=== PATIENT | female | born 1970 | race Caucasian/White ===

== ENCOUNTER 2021-03-05 02:19 | Emergency (ER) | payer OTHER ==
[~2021-03-05] VITALS: Ht 149.9 cm; Wt 59.0 kg
[~2021-03-05 02:19] MED LIST: DULO60CA41 PO
[2021-03-05 02:28] VITALS: BP_SYST 134
--- NOTE | 2021-03-05 02:28 | NUR ---
Patient to ER bed 5 to gown for evaluation. Side rails up.
--- NOTE | 2021-03-05 02:40 | NUR ---
ER Dr. CARO at bedside examining patient.
[2021-03-05] MEDS ORDERED: IBUPROFEN 800 MG TABLET PO ONE (02:45)
[2021-03-05] MEDS ORDERED: IPRATROPIUM/ALBUTEROL SULFATE 3 ML AMPUL.NEB (DUONEB) INH ONE (02:45)
[2021-03-05] MEDS ORDERED: AMLO5TAB4 PO (02:45)
[2021-03-05] MEDS ORDERED: lipitor PO (02:47)
--- NOTE | 2021-03-05 03:25 | NUR ---
PT JUST NOTIFIED ME THAT SHE FORGOT TO TELL THE DOCTOR SHE IS ALSO HAVING RIGHT NECK AND SHOULDER PAIN AND LEFT FLANK PAIN. MD Hinojosa NOTIFIED, NO NEW ORDERS RECEIVED.
[2021-03-05 03:57] LABS: HEMOGLOBIN 12.6 g/dL (12.0-16.0); RED BLOOD CELL COUNT(AUTO) 4.15 MIL/uL (4.2-6.2); WHITE BLOOD COUNT (AUTO) 7.7 K/uL (4.8-10.8)
[2021-03-05 03:58] LABS: HEMATOCRIT 36.9 % (36-48); LYMPHOCYTES % (AUTO) 12.1 % (20.5-51.5); MEAN CORPUSCULAR HEMOGLOBIN 30 pg (27-31); MEAN CORPUSCULAR HGB CONC 34 % (32-36); MEAN CORPUSCULAR VOLUME 89 fL (79.0-98.0); NEUTROPHILS % (AUTO) 72.1 % (40.0-70.0); PLATELET COUNT (AUTO) 280 K/uL (130-430); RED CELL DISTRIBUTION WIDTH 12.3 % (9.0-15.0)
[2021-03-05 03:59] LABS: BASOPHILS # (AUTO) 0.1 K/uL (0.0-0.2); BASOPHILS % (AUTO) 1.6 % (0.0-2.0); EOSINOPHILS # (AUTO) 0.3 K/uL (0.0-0.4); LYMPHOCYTES # (AUTO) 0.9 K/uL (1.0-5.5); MONOCYTES # (AUTO) 0.8 K/uL (0.0-1.0); MONOCYTES % (AUTO) 10.2 % (1.7-9.3); NEUTROPHILS # (AUTO) 5.6 K/uL (1.8-7.7)
[2021-03-05 04:06] LABS: CALCIUM 9.3 mg/dL (8.4-11.0); POTASSIUM 3.5 mmol/L (3.5-5.1)
[2021-03-05 04:07] LABS: CREATININE 0.6 mg/dL (0.55-1.30); TOTAL BILIRUBIN 0.3 mg/dL (0.0-1.0)
[2021-03-05 04:08] LABS: ALBUMIN 3.8 g/dL (3.4-4.8)
[2021-03-05 04:35] VITALS: BP_SYST 134
[2021-03-05] MEDS ORDERED: ALBMDI INH (04:37)
--- NOTE | 2021-03-05 04:38 | NUR ---
Patient given written and verbal discharge instructions and verbalizes understanding. DR. GELACIO RAMIRES MD discussed with patient the results and treatment provided. Patient in stable condition. ID arm band removed. Rx of ALBUTEROL INH given. Patient educated on pain management and to follow up with PMD. Pain Scale 0/10. Opportunity for questions provided and answered. Medication side effect fact sheet provided.
== END 2021-03-05 04:35 | disposition home or self-care (01) ==
LOC: SED 02:19
DX: R06.02 Shortness of breath (principal); R07.1 Chest pain on breathing; I10 Essential (primary) hypertension; Z79.899 Other long term (current) drug therapy
CPT/HCPCS: 36415; 71045; 80053; 84484; 85025; 93005; 94640; 99285